=== PATIENT | male | born 1965 | race Caucasian/White ===

== ENCOUNTER 2018-01-23 06:52 | Observation (INO) | payer SELFPAY ==
[~2018-01-23] VITALS: Ht 167.6 cm; Wt 135.9 kg
[~2018-01-23 06:52] MED LIST: BACT800T5 PO; CLIN150 PO; LACTGRA PO; LORTA5 PO; METF850T PO; Z.0.NO CURRENT MEDS
[2018-01-23 06:58] VITALS: BP 160/85; PULSE 112; RESP 18; TEMP 98.4; O2SAT 95
[2018-01-23] MEDS ORDERED: METF1000 PO (07:04)
[2018-01-23] MEDS ORDERED: SODIUM CHLOR 0.9% 1000 ML INJ 1,000 ML IV SCH (07:45)
[2018-01-23] MEDS ORDERED: ASPIRIN 325 MG TAB PO ONE (07:45)
[2018-01-23 07:53] LABS: AUTOMATED NEUTROPHIL # 7.5 TH/MM3 (1.8-7.7); BASOPHIL % 0.2 % (0.0-2.0); EOSINOPHIL # 0.1 TH/MM3 (0-0.4); HEMOGLOBIN 16.1 GM/DL (13.0-17.0); LYMPH % 3.7 % (9.0-44.0); LYMPHOCYTE # 0.3 TH/MM3 (1.0-4.8); MEAN CORPUSCULAR HEMOGLOBIN 29.2 PG (27.0-34.0); MEAN CORPUSCULAR HGB CONC 34.3 % (32.0-36.0); MONO % 4.6 % (0.0-8.0); MONOCYTE # 0.4 TH/MM3 (0-0.9); NEUT % 90.5 % (16.0-70.0); PLATELET COUNT 166 TH/MM3 (150-450); RED BLOOD COUNT 5.53 MIL/MM3 (4.50-5.90); RED CELL DISTRIBUTION WIDTH 13.9 % (11.6-17.2); WHITE BLOOD COUNT 8.3 TH/MM3 (4.0-11.0)
[2018-01-23 08:00] VITALS: PULSE 118; RESP 18; O2SAT 96
[2018-01-23 08:02] LABS: PROTHROMBIN TIME - PATIENT 10.3 SEC (9.8-11.6)
--- NOTE | 2018-01-23 08:19 | RADRPT ---
EXAM DATE: 01/23/2018 8:13 AM EDT AGE/SEX: 52 years / Male INDICATIONS: Shortness of breath and chest pain. CLINICAL DATA: This is the patient's initial encounter. Patient reports that signs and symptoms have been present for 2 weeks and indicates a pain score of 8/10. MEDICAL/SURGICAL HISTORY: Hypertension. Diabetes. None. COMPARISON: No prior exams available for comparison. FINDINGS: A single AP view of the chest demonstrates the lungs to be symmetrically aerated without evidence of mass, infiltrate or effusion. The cardiomediastinal contours are unremarkable. Osseous structures a re intact. CONCLUSION: Negative examination. Electronically signed by: Dewayne Salcido MD 01/23/2018 8:17 AM EDT
[2018-01-23 09:27] LABS: ALBUMIN 3.3 GM/DL (3.4-5.0); AST (GOT) 14 U/L (15-37); BICARBONATE 24.7 MEQ/L (21.0-32.0); BLOOD UREA NITROGEN 15 MG/DL (7-18); CALCIUM 8.1 MG/DL (8.5-10.1); CHLORIDE 102 MEQ/L (98-107); GLOMERULAR FILTRATION RATE 70 ML/MIN (>89); GLUCOSE,RANDOM 204 MG/DL (74-106); SODIUM (NA) 138 MEQ/L (136-145)
[2018-01-23 09:31] LABS: ALKALINE PHOSPHATASE 42 U/L (45-117); TOTAL BILIRUBIN ADULT 0.7 MG/DL (0.2-1.0); TOTAL PROTEIN 6.6 GM/DL (6.4-8.2); TROPONIN I LESS THAN 0.02 NG/ML (0.02-0.05)
[2018-01-23 09:39] LABS: ALT (GPT) 27 U/L (12-78)
[2018-01-23 09:40] VITALS: BP 108/67; PULSE 99; RESP 18; O2SAT 100
[2018-01-23] MEDS ORDERED: IOHEXOL 350 MG/ML 10 ML VIAL (for RAD DIAG) IVCONTRAST ONE (11:02)
--- NOTE | 2018-01-23 11:10 | RADRPT ---
EXAM DATE: 01/23/2018 11:03 AM EDT AGE/SEX: 52 years / Male INDICATIONS: Chest pain and shortness of breath. CLINICAL DATA: This is the patient's initial encounter. Patient reports that signs and symptoms have been present for 2 days and indicates a pain score of 4/10. MEDICAL/SURGICAL HISTORY: Diabetes. None. RADIATION DOSE: 10.73 CTDI (mGy) COMPARISON: No prior exams available for comparison. TECHNIQUE: Volumetric scanning was performed using a multi-row detector CT scanner during bolus infu sosa of 75 ml Omnipaque 350 (iohexol) nonionic water-soluble contrast as a single exam dose. The bharath a was post processed with a variety of visualization algorithms including full volume maximum intensi ty projection and sliding thin slab reformation. Using automated exposure control and adjustment of the mA and/or kV according to patient size, radiation dose was kept as low as reasonably achievable t o obtain optimal diagnostic quality images. FINDINGS: Pulmonary Arteries: No filling defects are seen in the pulmonary arteries out to the subsegmental ve ssels. The left and right pulmonary arteries are normal in diameter. Lung: No infiltrates seen. Effusion: None. Mediastinum: No evidence of mediastinal or hilar adenopathy. Mild coronary artery calcification is n oted. Other: The axilla is unremarkable. The liver is diffusely hypodense. CONCLUSION: 1. No evidence of acute pulmonary embolism or acute cardiopulmonary process. 2. Mild coronary artery calcification. 3. Hepatic steatosis. Electronically signed by: Km Sosa MD 01/23/2018 11:08 AM EDT
[2018-01-23 11:45] VITALS: BP 113/53; PULSE 93; RESP 18; O2SAT 94
--- NOTE | 2018-01-23 12:28 | PD ---
HPI Chief Complaint: Chest Pain Time Seen by Provider: 07:25 Travel History International Travel<30 days: No Contact w/Intl Traveler<30days: No Traveled to known affect area: No History of Present Illness HPI 52-year-old male complained of chest pain and shortness of breath. Patient states that the pain started 2 days ago. Patient stated pain aching pain with occasionally sharp pain. Patient states that the pain started on the left chest which occasionally radiates to the left elbow. Patient states that he has shortness of breath and occasional diaphoresis with the pain. Patient complaint intermittent dizziness and blurring vision for months. Patient states that the symptoms are not worse recently. Patient has history of elevated blood pressure in the past. Patient is not on any medication for blood pressure. Patient has history of diabetes type 2 and was on metformin the past. Patient ran out of medication. Patient has been using his friend's metformin 1000 mg daily recently. Patient smokes cigars. Patient denies history of hyperlipidemia. Patient denies family history of heart disease. PFSH Past Medical History Cancer: No Cardiovascular Problems: No Diabetes: Yes Patient Takes Glucophage: Yes Genitourinary: No Neurologic: No Psychiatric: No Respiratory: No Immunizations Current: No Past Surgical History Genitourinary Surgery: Yes (SCROTUM INFECTION) Social History Alcohol Use: Yes Tobacco Use: No Substance Use: No Allergies-Medications (Allergen,Severity, Reaction): Coded Allergies: No Known Allergies (Verified Adverse Reaction, Unknown, 01/23/18) Reported Meds & Prescriptions Reported Meds & Active Scripts Active Reported Metformin (Metformin HCl) 1,000 Mg Tab 1,000 Mg PO DAILY With a meal Review of Systems General / Constitutional: No: Fever Eyes: No: Visual changes HENT: No: Headaches Cardiovascular: Positive: Chest Pain or Discomfort Respiratory: Positive: Shortness of Breath Gastrointestinal: No: Abdominal Pain Genitourinary: No: Dysuria Musculoskeletal: No: Pain Skin: No Rash Neurologic: No: Weakness Psychiatric: No: Depression Endocrine: No: Polydipsia Hematologic/Lymphatic: No: Easy Bruising Physical Exam Narrative GENERAL: Well-nourished, well-developed patient. SKIN: Focused skin assessment warm/dry. HEAD: Normocephalic. EYES: No scleral icterus. No injection or drainage. NECK: Supple, trachea midline. No JVD or lymphadenopathy. CARDIOVASCULAR: Regular rate and rhythm without murmurs, gallops, or rubs. RESPIRATORY: Breath sounds equal bilaterally. No accessory muscle use. GASTROINTESTINAL: Abdomen soft, non-tender, nondistended. MUSCULOSKELETAL: No cyanosis, or edema. BACK: Nontender without obvious deformity. No CVA tenderness. Neurologic exam normal. Data Data Last Documented VS Vital Signs Date Time Temp Pulse Resp B/P (MAP) Pulse Ox O2 Delivery O2 Flow Rate FiO2 01/23/18 11:45 93 18 113/53 (73) 94 Room Air 01/23/18 06:58 98.4 Orders Orders Aspirin (Aspirin) (01/23/18 07:45) Sodium Chlor 0.9% 1000 Ml Inj (Ns 1000 M (01/23/18 07:45) Electrocardiogram (01/23/18 07:35) Complete Blood Count With Diff (01/23/18 07:35) Comprehensive Metabolic Panel (01/23/18 07:35) Creatine Kinase (Cpk) (01/23/18 07:35) Troponin I (01/23/18 07:35) Prothrombin Time / Inr (Pt) (01/23/18 07:35) Act Partial Throm Time (Ptt) (01/23/18 07:35) Chest, Single Ap (01/23/18 07:35) Iv Access Insert/Monitor (01/23/18 07:35) Ecg Monitoring (01/23/18 07:35) Oximetry (01/23/18 07:35) Ct Pulmonary Angiogram (01/23/18 08:04) Iohexol 350 Inj (Omnipaque 350 Inj) (01/23/18 11:02) Labs Laboratory Tests Test 01/23/18 07:39 01/23/18 08:56 White Blood Count 8.3 TH/MM3 Red Blood Count 5.53 MIL/MM3 Hemoglobin 16.1 GM/DL Hematocrit 47.0 % Mean Corpuscular Volume 85.0 FL Mean Corpuscular Hemoglobin 29.2 PG Mean Corpuscular Hemoglobin Concent 34.3 % Red Cell Distribution Width 13.9 % Platelet Count 166 TH/MM3 Mean Platelet Volume 10.0 FL Neutrophils (%) (Auto) 90.5 % Lymphocytes (%) (Auto) 3.7 % Monocytes (%) (Auto) 4.6 % Eosinophils (%) (Auto) 1.0 % Basophils (%) (Auto) 0.2 % Neutrophils # (Auto) 7.5 TH/MM3 Lymphocytes # (Auto) 0.3 TH/MM3 Monocytes # (Auto) 0.4 TH/MM3 Eosinophils # (Auto) 0.1 TH/MM3 Basophils # (Auto) 0.0 TH/MM3 CBC Comment DIFF FINAL Differential Comment Prothrombin Time 10.3 SEC Prothromb Time International Ratio 1.0 RATIO Activated Partial Thromboplast Time 25.4 SEC Blood Urea Nitrogen 15 MG/DL Creatinine 1.10 MG/DL Random Glucose 204 MG/DL Total Protein 6.6 GM/DL Albumin 3.3 GM/DL Calcium Level 8.1 MG/DL Alkaline Phosphatase 42 U/L Aspartate Amino Transf (AST/SGOT) 14 U/L Alanine Aminotransferase (ALT/SGPT) 27 U/L Total Bilirubin 0.7 MG/DL Sodium Level 138 MEQ/L Potassium Level 4.4 MEQ/L Chloride Level 102 MEQ/L Carbon Dioxide Level 24.7 MEQ/L Anion Gap 11 MEQ/L Estimat Glomerular Filtration Rate 70 ML/MIN Total Creatine Kinase 56 U/L Troponin I LESS THAN 0.02 NG/ML MDM Medical Decision Making Medical Screen Exam Complete: Yes Emergency Medical Condition: Yes Interpretation(s) 12:23 PM. EKG shows sinus tachycardia rhythm nonspecific ST-T wave change. Rate 110. Last Impressions CT Angiography 01/23/18 0804 Signed Impressions: CONCLUSION: 1. No evidence of acute pulmonary embolism or acute cardiopulmonary process. 2. Mild coronary artery calcification. 3. Hepatic steatosis. Chest X-Ray 01/23/18 0745 Signed Impressions: CONCLUSION: Negative examination. 12:23 PM. CBC within normal limits. GFR 70. Glucose 204. Calcium 8.1. Cardiac enzymes are normal. Differential Diagnosis Differential diagnosis including musculoskeletal, angina, IN, PE, pneumothorax. Narrative Course 52-year-old male with chest pain and shortness of breath. Aspirin 325 mg p.o. given. Patient will be admitted to the chest pain center. Diagnosis Primary Impression: Chest pain Qualified Codes: R07.9 - Chest pain, unspecified Admitting Information Admitting Physician Requests: Observation Craig Maxwell MD Jan 23, 2018 12:28
[2018-01-23] MEDS ORDERED: SODIUM CHLORIDE 0.9% FLUSH 10 ML FLUSH IV FLUSH PRN (12:30)
[2018-01-23] MEDS ORDERED: ACETAMINOPHEN 500 MG CPLT PO PRN (12:30)
[2018-01-23] MEDS ORDERED: ONDANSETRON ODT 4 MG TAB PO PRN (13:00)
[2018-01-23 14:19] LABS: TROPONIN I LESS THAN 0.02 NG/ML (0.02-0.05)
--- NOTE | 2018-01-23 14:19 | HHI.HP ---
HPI Primary Care Physician No Primary Care Physician Chief Complaint Chest pain History of Present Illness This is a 52-year-old male with history of diabetes and tobacco abuse that presents to ED private vehicle with complaint of 3-4 days of constant chest discomfort that waxes and wanes in intensity. He is found that sometimes an activity can worsen it which may be walking and has also worsened just while resting. He has intermittent shortness of breath with this. He has not taken any [id number] remedies to help alleviate his symptoms. Denies history of CAD but states he has never had a stress test or heart catheterization. Has history of diabetes and takes metformin for that. States he is not taking an GREGOR inhibitor or statin. The discomfort is described as an ache with mixed sharp discomforts. At times diaphoretic. No nausea. At times the discomfort will radiate from left side of his chest into his left arm. Review of Systems General: Patient denies fevers, chills, and recent travel. HEENT: Patient denies headache, sore throat, difficulty swallowing. Cardiovascular: Has the chest discomfort as mentioned above. Denies sensation of heart beating rapidly or irregularly. No syncope. Occasional diaphoresis. Respiratory: Occasional shortness of breath. Denies inspirational chest discomfort. Denies coughing wheezing or hemoptysis. GI: Patient denies nausea, vomiting, diarrhea, abdominal pain, bloody stools. Musculoskeletal: Patient denies joint pain or edema. Denies calf pain or edema. Neurovascular: Patient denies numbness, tingling, weakness in extremities. Denies headache. Endocrine: Denies polyuria and polydipsia. Hematologic: Denies easy bruising. Skin: Denies rash or itching. Past Family Social History Allergies: Coded Allergies: No Known Allergies (Verified Allergy, Unknown, 01/23/18) Past Medical History Diabetes and tobacco abuse. Denies hypertension, hyperlipidemia, and coronary artery disease. Reported Medications Reported Meds & Active Scripts Active Reported Metformin (Metformin HCl) 1,000 Mg Tab 1,000 Mg PO DAILY With a meal Active Ordered Medications Current Medications Medications (Trade) Dose Ordered Sig/Obie Route Start Time Stop Time Status Last Admin Sodium Chloride 1,000 ml @ 125 mls/hr Q8H IV 01/23/18 07:45 01/23/18 08:05 (NS Flush) 2 ml UNSCH PRN IV FLUSH 01/23/18 12:30 (NS Flush) 2 ml BID IV FLUSH 01/23/18 21:00 (Tylenol) 500 mg Q4H PRN PO 01/23/18 12:30 (Zofran Odt) 4 mg Q4H PRN PO 01/23/18 13:00 Family History Noncontributory. Social History Patient smokes 8-10 cigars per day. He drinks beer a couple times a week drinking 15-20 beers at a time. Denies illicit drugs. He owns a [employer]. Physical Exam Vital Signs Vital Signs Date Time Temp Pulse Resp B/P (MAP) Pulse Ox O2 Delivery O2 Flow Rate FiO2 01/23/18 13:57 01/23/18 11:45 93 18 113/53 (73) 94 Room Air 01/23/18 09:40 99 18 108/67 (81) 100 Room Air 01/23/18 08:00 118 18 96 Room Air 01/23/18 07:00 113 18 96 Room Air 01/23/18 06:58 98.4 112 18 160/85 (110) 95 Physical Exam GENERAL: This is a well-nourished, well-developed patient, in no apparent distress. He was obese and states his weight is about 295. Patient speaks in clear complete sentences. Patient is pleasant. HEENT: Head is atraumatic and normocephalic. Neck is supple without lymphadenopathy and trachea is midline. No JVD or carotid bruits. CARDIOVASCULAR: Regular rate and rhythm without murmurs, gallops, or rubs. RESPIRATORY: Clear to auscultation. Breath sounds equal bilaterally. No wheezes , rales, or rhonchi. Chest wall is nontender. No use of accessory muscles. GASTROINTESTINAL: Abdomen is nontender, nondistended. Abdomen soft. No obvious pulsatile mass or bruit. No CVA tenderness. Strong femoral pulses bilaterally. Normal bowel sounds in all quadrants. MUSCULOSKELETAL: Patient is moving upper and lower extremities freely. No calf tenderness or edema, no Homans sign. Strong pulses in upper and lower extremities. NEUROLOGICAL: Patient is alert and oriented. Cranial nerves 2-12 are grossly intact. No focal deficits and speech is clear. SKIN: No rash and turgor is normal. Laboratory Laboratory Tests Test 01/23/18 07:39 01/23/18 08:56 01/23/18 12:57 01/23/18 13:43 White Blood Count 8.3 Red Blood Count 5.53 Hemoglobin 16.1 Hematocrit 47.0 Mean Corpuscular Volume 85.0 Mean Corpuscular Hemoglobin 29.2 Mean Corpuscular Hemoglobin Concent 34.3 Red Cell Distribution Width 13.9 Platelet Count 166 Mean Platelet Volume 10.0 Neutrophils (%) (Auto) 90.5 Lymphocytes (%) (Auto) 3.7 Monocytes (%) (Auto) 4.6 Eosinophils (%) (Auto) 1.0 Basophils (%) (Auto) 0.2 Neutrophils # (Auto) 7.5 Lymphocytes # (Auto) 0.3 Monocytes # (Auto) 0.4 Eosinophils # (Auto) 0.1 Basophils # (Auto) 0.0 CBC Comment DIFF FINAL Differential Comment Prothrombin Time 10.3 Prothromb Time International Ratio 1.0 Activated Partial Thromboplast Time 25.4 Blood Urea Nitrogen 15 Creatinine 1.10 Random Glucose 204 Total Protein 6.6 Albumin 3.3 Calcium Level 8.1 Alkaline Phosphatase 42 Aspartate Amino Transf (AST/SGOT) 14 Alanine Aminotransferase (ALT/SGPT) 27 Total Bilirubin 0.7 Sodium Level 138 Potassium Level 4.4 Chloride Level 102 Carbon Dioxide Level 24.7 Anion Gap 11 Estimat Glomerular Filtration Rate 70 Total Creatine Kinase 56 Troponin I LESS THAN 0.02 Result Diagram: 01/23/18 0739 01/23/18 0856 Imaging Last [address] Angiography 01/23/18 0804 Signed Impressions: CONCLUSION: 1. No evidence of acute pulmonary embolism or acute cardiopulmonary process. 2. Mild coronary artery calcification. 3. Hepatic steatosis. Chest X-Ray 01/23/18 0735 Signed Impressions: CONCLUSION: Negative examination. Course EKGs: Initial EKG sinus rhythm with nonspecific T-wave changes. Caprini VTE Risk Assessment Caprini VTE Risk Assessment: No/Low Risk (score <= 1) Caprini Risk Assessment Model Point Value = 1 Point Value = 2 Point Value = 3 Point Value = 5 Age 41-60 Minor surgery BMI > 25 kg/m2 Swollen legs Varicose veins or History of unexplained or recurrent spontaneous Oral contraceptives or hormone replacement Sepsis (< 1 month) Serious lung disease, including pneumonia (< 1 month) Abnormal pulmonary function Acute myocardial infarction Congestive heart failure (< 1 month) History of inflammatory bowel disease Medical patient at bed rest Age 61-74 Arthroscopic surgery Major open surgery (> 45 min) Laparoscopic surgery (> 45 min) Malignancy Confined to bed (> 72 hours) Immobilizing plaster cast Central venous access Age >= 75 History of VTE Family history of VTE Factor V Leiden Prothrombin [id number] Lupus anticoagulant Anticardiolipin antibodies Elevated serum homocysteine Heparin-induced thrombocytopenia Other congenital or acquired thrombophilia Stroke (< 1 month) Elective arthroplasty Hip, pelvis, or leg fracture Acute spinal cord injury (< 1 month) Prophylaxis Regimen Total Risk Factor Score Risk Level Prophylaxis Regimen 0-1 Low Early ambulation 2 Moderate Order ONE of the following: *Sequential Compression Device (SCD) *Heparin 5000 units SQ BID 3-4 Higher Order ONE of the following medications: *Heparin 5000 units SQ TID *Enoxaparin/Lovenox 40 mg SQ daily (WT < 150 kg, CrCl > 30 mL/min) *Enoxaparin/Lovenox 30 mg SQ daily (WT < 150 kg, CrCl > 10-29 mL/min) *Enoxaparin/Lovenox 30 mg SQ BID (WT < 150 kg, CrCl > 30 mL/min) AND/OR *Sequential Compression Device (SCD) 5 or more Highest Order ONE of the following medications: *Heparin 5000 units SQ TID (Preferred with Epidurals) *Enoxaparin/Lovenox 40 mg SQ daily (WT < 150 kg, CrCl > 30 mL/min) *Enoxaparin/Lovenox 30 mg SQ daily (WT < 150 kg, CrCl > 10-29 mL/min) *Enoxaparin/Lovenox 30 mg SQ BID (WT < 150 kg, CrCl > 30 mL/min) AND *Sequential Compression Device (SCD) Assessment and Plan Assessment and Plan * Chest pain: Patient will continue to have serial cardiac enzymes and EKGs for ruling out purposes. He will be seen by Dr. Jc of cardiology in the chest pain center. He likely will undergo a Lexiscan in the morning if he rules out. Patient would be discharged home if the stress test is nonischemic with instructions to follow-up with a local primary care physician. Return to ED for interval issues. * Diabetes: Patient will be covered with sliding scale insulin coverage while in chest pain center. Diabetic diet. At discharge he will need to hold his metformin for 48 hours. He also should discuss being on GREGOR inhibitor for renal protection as well as statin with his history of diabetes. * Obesity: Patient counseled on importance of diet, exercise, and weight loss. * Tobacco abuse: Patient counseled on importance of smoking cessation. Patient is stable at this time. He is agreeable to this plan. Ruben Galvez Jan 23, 2018 14:19
[2018-01-23 14:34] LABS: TROPONIN I LESS THAN 0.02 NG/ML (0.02-0.05)
[2018-01-23 14:37] VITALS: BP 135/77; PULSE 98; RESP 20; TEMP 98.6; O2SAT 95
[2018-01-23] MEDS ORDERED: RESP: ALBUTEROL 2.5 MG/IPRATROPIUM 0.5 MG NEB (PRN) INH (14:45)
[2018-01-23] MEDS ORDERED: cloNIDine HCL 0.1 MG TAB PO PRN (14:45)
--- NOTE | 2018-01-23 18:13 | EKG ---
Date Performed: 01/23/2018 Time Performed: 07:01:06 PTAGE: 52 years EKG: SINUS TACHYCARDIA NONSPECIFIC T-WAVE ABNORMALITY ABNORMAL RHYTHM ECG NO PREVIOUS TRACING DOCTOR: Debra Jc Interpretating Date/Time 01/23/2018 18:10:55
[2018-01-23] MEDS ORDERED: SODIUM CHLORIDE 0.9% FLUSH 10 ML FLUSH IV FLUSH SCH (21:00)
--- NOTE | 2018-01-24 18:15 | EKG ---
Date Performed: 01/23/2018 Time Performed: 13:47:17 PTAGE: 52 years EKG: Sinus rhythm NONSPECIFIC T-WAVE ABNORMALITY BORDERLINE ECG Since PREVIOUS TRACING , no significant change noted PREVIOUS TRACIN01/23/2018 07.01 DOCTOR: Debra Jc Interpretating Date/Time 01/24/2018 18:13:27
== END 2018-01-23 16:40 | disposition left against medical advice (07) ==
LOC: NEPC 06:52 → NEDA 12:30 → NEPFCDU 14:00
PROVIDERS: ADMIT Internal Medicine Interventional Cardiology; ATTEND Internal Medicine Interventional Cardiology
DX: R07.9 Chest pain, unspecified (principal); E11.9 Type 2 diabetes mellitus without complications; R94.31 Abnormal electrocardiogram [ECG] [EKG]; E66.9 Obesity, unspecified; F17.290 Nicotine dependence, other tobacco product, uncomplicated; Z79.82 Long term (current) use of aspirin; Z68.42 Body mass index [BMI] 45.0-49.9, adult
CPT/HCPCS: 71045; 71275; 80053; 82550; 84484; 85025; 85610; 85730; 93005; 96360; 99285; G0378; J7030; Q9967